=== PATIENT | female | born 1995 | race Caucasian/White ===

== ENCOUNTER 2024-03-21 08:29 | Outpatient (AMB) | payer OTHER, SELFPAY ==
--- NOTE | 2024-03-21 08:41 | AM.OFFWIN_ITS ---
Intake Vital Signs 03/21/24 08:44 Height 5 ft 2 in Weight 125 lb 8 oz BMI 23.0 BP 108/64 Blood Pressure Location Rt brachial Position Sitting Respiration 12 Pulse 69 Pulse Source Pulse Oximeter Temp 98.7 F Temp Source Oral Pulse Oximetry (%) 98 Oxygen Delivery Method Room Air Intake Visit Reasons: Possible UTI Intake Note: Burning while urinating Patient Tobacco Use Status: Never used Tobacco Allergies No Known Allergies Allergy (Verified 03/21/24 08:46) Medication List - Last Reconciled 03/21/24 by DIMITRI Mccollum No Known Home Meds Do you need a note to return to daycare/school/sports/work: No HPI HPI Comments History of Present Illness Details 28-year-old female here today with jh rn for a UTI. 1-2 per year, usually occuring after int ercourse Feels like UTI and yeast at the same time Sx started 3 days ago Sx include: [place] w/ urination, uncomfortable, tissue inflammed, spotting, urinary frequency. LMP 1 week ago. Denies chance of . Denies discharge or concern for STD. Exam Awake alert oriented Mucous membranes moist No CVAT bilat No suprapubic tenderness Plan Bactrim for 3 days, then fluconazole. RTO if no improvement. PFSH Social History Patient Tobacco Use Status: Never used Tobacco Physical Exam Vital Signs: Last Vital Signs Temp 98.7 F 03/21/24 08:44 Pulse 69 03/21/24 08:44 Resp 12 03/21/24 08:44 BP 108/64 03/21/24 08:44 Pulse Ox 98 03/21/24 08:44 Oxygen Delivery Method Room Air 03/21/24 08:44 BMI result Body Mass Index 23.0 Results AMB Urinalysis Dipstick UR Leukocytes Large Last Edit by Lashanda Macias CMA on 03/21/24 08:44 UR Nitrite Negative Last Edit by Lashanda Macias CMA on 03/21/24 08:44 UR Urobilinogen Normal Last Edit by Lashanda Macias CMA on 03/21/24 08:44 UR Protein Negative Last Edit by Lashanda Macias CMA on 03/21/24 08:44 UR Ph 6.5 Last Edit by Lashanda Macias CMA on 03/21/24 08:44 UR Blood Last Edit by Lashanda Macias CMA on 03/21/24 08:44 UR Specific [place] 1.020 Last Edit by Lashanda Macias CMA on 03/21/24 08: 44 UR Ketone Negative Last Edit by Lashanda Macias CMA on 03/21/24 08:44 UR Bilirubin Negative Last Edit by Lashanda Macias CMA on 03/21/24 08:44 UR Glucose Negative Last Edit by Lashanda Macias CMA on 03/21/24 08:44 Results Reviewed Results Reviewed: Laboratory Last Values Urine pH (Clinic) 6.5 03/21/24 08:42 Specific [place] (Clinic) 1.020 03/21/24 08:42 Ur Protein (Clinic) Negative 03/21/24 08:42 Ur Ketones (Clinic) Negative 03/21/24 08:42 Urine Nitrite Negative 03/21/24 08:42 Urine Bilirubin (Clinic) Negative 03/21/24 08:42 Urobilinogen (Clinic) Normal 03/21/24 08:42 Leukocyte Esterase (Clinic) Large 03/21/24 08:42 Urine Glucose (Clinic) Negative 03/21/24 08:42 Assessment & Plan Assessment & Plan (1) UTI symptoms: Code(s): R39.9 - Unspecified symptoms and signs involving the genitourinary system Plan . Orders: Orders AMB Urinalysis Dipstick Today R30.9 - Painful micturition, unspecified Medications: New sulfamethoxazole-trimethoprim 800-160 mg (Bactrim DS) 1 tab PO BID 3 days 6 tabs 0RF fluconazole 150 mg PO DAILY 1 day 1 tab 0RF Patient Instructions: What is the urinary tract? This is the group of organs in the body that handle urine (figure 1 https ://www.[employer]/contents/image?imageKey=PI%9K92375&topicKey=PI%9V27067&searc h=uti&rank=4%7E150&source=see_link ). It includes the: ?Kidneys ? These are 2 cat-shaped organs that filter the blood to make urine. ?Bladder ? This is a balloon-shaped organ that stores urine. ?Ureters ? These are 2 tubes that carry urine from the kidneys to the bladder. ?Urethra ? This is the tube that carries urine from the bladder to the outside of the body. What are urinary tract infections? Urinary tract infections, or UTIs, are infections that affect either the bladder or the kidneys: ?Bladder infections are more common than kidney infections. They happen when bacteria get into the urethra and travel up into the bladder. The medical term for bladder infection is cystitis. Most of the time, when people talk about a UTI, they mean a bladder infection. ?Kidney infections happen when the bacteria travel even higher, up into the kidneys. The medical term for kidney infection is pyelonephritis. This is more serious than a bladder infection, and can lead to other serious problems if it is not treated properly. Both bladder and kidney infections are more common in females than males. The risk of UTIs is also higher in people who have a urinary catheter. A catheter is a thin, flexible tube that drains urine from the bladder. It might be used in people who are in the hospital and cannot urinate the normal way. What are the symptoms of a bladder infection? The symptoms include: ?Pain or a burning feeling when you urinate ?The need to urinate often ?The need to urinate suddenly or in a hurry ?Blood in the urine What are the symptoms of a kidney infection? The symptoms of a kidney infection can include the same urinary symptoms that happen with a bladder infection. In addition, kidney infections can cause: ?Fever ?Back pain ?Nausea or vomiting Will I need tests? Maybe. If you think that you might have a UTI, call your doctor or nurse. Sometimes, they can tell if you have one just by learning about your symptoms. Your doctor or nurse might do a simple urine test in the office. They might also do a more involved urine test to check for bacteria. How are UTIs treated? Most are treated with antibiotic pills. These work by killing the germs that cause the infection. ?If you have a bladder infection, you will probably need to take antibiotics for 3 to 7 days. ?If you have a kidney infection, you will probably need to take antibiotics for longer. Some people need to take them for 10 days. If you have a kidney infection, it's also possible that you will need to be treated in the hospital. Your symptoms should begin to improve within a day of starting antibiotics. But you should finish all of the antibiotic pills. Otherwise, the infection might come back. If needed, you can also take a medicine to numb your bladder. This medicine eases the pain caused by UTIs. It also reduces the need to urinate. What if I get bladder infections a lot? First, check with your doctor or nurse to make sure that you are really having bladder infections. The symptoms of bladder infection can be caused by other things. Your doctor or nurse will want to see if those problems might be causing your symptoms. If your doctor confirms that you are having repeated infections, there are things you can do to keep from getting more infections. These include: ?Drinking more fluid ? This can help prevent bladder infections. ?Vaginal estrogen ? If you have already been through menopause, your doctor might suggest this. Vaginal estrogen comes in a cream or a flexible ring that you put into your vagina. It can help prevent bladder infections. Other things that might help: ?Avoid spermicides (sperm-killing creams or gels) ? Spermicide is a form of control. It seems to increase the risk of bladder infections in some females, especially when used with a diaphragm. If you use spermicide and get a lot of bladder infections, you might want to try switching to a different form of control. ?Urinate right after sex ? Some doctors think this helps, because it helps flush out germs that might get into the bladder during sex. There is no proof it works, but it also cannot hurt. If you get a lot of bladder infections, and the above methods have not helped, talk to your doctor about what else you can do to prevent infection. Taking an antibiotic every day or after sex can help prevent bladder infections. But long- term use of antibiotics has downsides, so doctors usually suggest trying other things first, such as: ?Methenamine (brand name: Hiprex) ? This is a pill you take every day. It changes your urine to make it harder for bacteria to grow. It works almost as well as antibiotics to prevent bladder infections. ?Cranberry juice or other cranberry products ? These might help prevent bladder infections. But doctors do not know what the best dose is. Can other products prevent bladder infections? People often wonder about other natural products that claim to help prevent bladder infections. These include probiotic pills,?vitamin C https://www.[employer]/contents/rosa cdw-r-qvuolipf-qnln-lzxxmrj-lcry-information?search=uti&iqmkiPcs=07919&source=se e_link , and D-mannose. There is?not?good evidence that these things work. However, there is also no clear evidence that they are harmful. If you have questions about these or other products, talk with your doctor or nurse. Coding Level of Care Code Est Pt Level 3 (05605) Diagnoses UTI symptoms R39.9
[2024-03-21 08:44] VITALS: BP 108/64; PULSE 69; RESP 12; TEMP 37.1; O2SAT 98; BMI 23.0
== END 2024-03-21 09:01 | disposition home or self-care (01) ==
PROVIDERS: Visit Provider Nurse Practitioner Family
DX: R39.9 Unspecified symptoms and signs involving the genitourinary system (principal); R30.9 Painful micturition, unspecified
CPT/HCPCS: 81002; 99213